=== PATIENT | male | born 1940 | race Caucasian/White ===

== ENCOUNTER 2017-11-22 07:41 | Outpatient (CLI) | payer BC ==
[2017-11-22 09:02] LABS: #Basophils 0.1 thou/uL (0.0-0.2); #Eosinphils 0.1 thou/uL (0.0-0.7); #Monocytes 0.5 thou/uL (0.11-0.59); #Neutrophils 3.7 thou/uL (1.40-6.50); %Basophils 0.9 % (0.0-1.0); %Eosinophils 1.1 % (0.0-10.0); %Lymphocytes 31.1 % (21.0-51.0); %Monocytes 8.6 % (0.0-10.0); %Neutrophils 58.3 % (42.0-75.0); Hemoglobin 14.5 g/dL (14.0-18.0); Mean Corpuscular HGB CONC 32.4 g/dL (32.0-36.0); Mean Corpuscular Hemoglobin 31.2 pg (27.0-31.0); Mean Platelet Volume 8.3 fL (7.4-10.4); Platelet Count 199 thou/uL (130-400); RBC Distribution Width 11.7 % (11.5-14.5); Red Blood Cell (RBC) Count 4.65 mill/uL (4.70-6.10); White Blood Cell (WBC) Count 6.3 thou/uL (4.8-10.8)
[2017-11-22 09:22] LABS: Anion Gap 10 mmol/L (10-20); BUN (Urea Nitrogen) 16 mg/dL (8.4-25.7); Calc. Creatinine Clearance 0 mL/min (70-130); Calcium 9.6 mg/dL (7.8-10.44); Carbon Dioxide 27 mmol/L (23-31); Chloride 108 mmol/L (98-107); Estimated GFR-MDRD 86; Glucose 104 mg/dL (83-110); Potassium 4.6 mmol/L (3.5-5.1); Sodium 140 mmol/L (136-145)
== END 2017-11-22 07:42 | disposition home or self-care (01) ==
LOC: LABBT 07:41
PROVIDERS: ATTEND Surgery
DX: Z01.818 Encounter for other preprocedural examination (principal); K40.90 Unilateral inguinal hernia, without obstruction or gangrene, not specified as recurrent
CPT/HCPCS: 80048; 85025; 93005; 93010

== ENCOUNTER 2017-11-26 05:55 | Day surgery (SDC) | payer BC ==
[2017-11-22 08:23] VITALS: BMI 23.7
[2017-11-26] MEDS ORDERED: CEFAZOLIN/Water 2 GM/20 ML SYRINGE ONE (06:12)
[2017-11-26] MEDS ORDERED: Bupivacaine/Epinephrine 0.25% 30 ML VIAL ONE (06:30)
[2017-11-26] MEDS ORDERED: Fentanyl 100 MCG/2 ML VIAL ONE ×3 (07:00→09:29)
--- NOTE | 2017-11-26 07:01 | HP ---
CHIEF COMPLAINT: Left inguinal hernia. HISTORY OF PRESENT ILLNESS: The patient is a 77-year-old male who reports a 20-year history of a lef t inguinal hernia, it is now causing pain, here for repair. PAST MEDICAL HISTORY: Seasonal allergies, bladder stones, bursitis, skin cancer, hyperlipidemia. PAST SURGICAL HISTORY: Tonsillectomy in 194. He has had anal fissure repaired in 1973. MEDICATIONS: Simvastatin, finasteride, lycopene, multivitamins, glucosamine. SOCIAL HISTORY: He is . No tobacco, no alcohol. FAMILY HISTORY: Both parents are . ALLERGIES: SULFA, LYRICA. PHYSICAL EXAMINATION: VITAL SIGNS: He is afebrile, pulse 61, blood pressure 129/61. He is 6 foot 1, 191 pounds, BMI of 25 .2. GENERAL: Well-developed, well-nourished male in no apparent distress. HEENT: Unremarkable. LUNGS: Clear. HEART: Regular rate and rhythm. ABDOMEN: Soft, nontender, good bowel sounds. EXTREMITIES: Good pulses. He has reducible left inguinal hernia. No right-sided hernia. ASSESSMENT: Left inguinal hernia. PLAN: Left inguinal hernia repair with mesh. CONSENT: I discussed the planned procedure as well as risk of bleeding, infection, injury to nerve, recurrence of hernia. He understands and gives informed consent.
[2017-11-26] MEDS ORDERED: Lidocaine 1% PF 5 ML VIAL ONE (09:55)
[2017-11-26] MEDS ORDERED: Glycopyrrolate 0.2 MG/ML 5 ML SYRINGE ONE (09:55)
[2017-11-26] MEDS ORDERED: Ondansetron HCl/PF 4 MG/2 ML Vial ONE (09:55)
[2017-11-26] MEDS ORDERED: PROPOFOL 200 MG/20 ML VIAL ONE (09:55)
--- NOTE | 2017-11-26 10:41 | OP ---
DATE OF PROCEDURE: 11/26/2017 PREOPERATIVE DIAGNOSIS: Left inguinal hernia. SURGEON: Alvarez Frazier M.D. PROCEDURE: Left inguinal hernia repair with mesh. INDICATIONS: A 77-year-old male with painful left inguinal hernia. FINDINGS: Left indirect inguinal hernia. PROCEDURE IN DETAIL: After informed consent was obtained, the patient was taken to the operating kt m and given general endotracheal anesthesia. He was placed in the supine position. Abdomen was prep ped and draped in usual fashion. Local anesthesia infiltrated subcutaneously and deep. A transverse left inguinal incision was performed. The subcu divided sharply. The fascia of the external obliqu e was incised in direction of its fibers through the external ring. Spermatic cord isolated with a P enrose drain. Cremasteric fibers and a hernia sac was found. This was dissected from surr ounding cord structures down to the internal ring and reduced. Reduction maintained with a PHS herni a system. The posterior layer was placed in the preperitoneal space. Anterior was laid out, sutured to the pubic tubercle medially, tucked under the external oblique fascia laterally. The external ob lique fascia closed with a running 3-0 Vicryl. Xiomy's closed with interrupted 3-0 Vicryl and the s kin closed with a running subcuticular 4-0 Rapide. Steri-Strips applied. Sterile bandage applied. The patient tolerated the procedure well and was transferred to recovery in good condition. Sponge a nd needle count verified correct x2.
[2017-11-26] MEDS ORDERED: HYDROcodone/Acetaminophen 5/325 mg Tablet ONE (10:50)
== END 2017-11-26 13:10 | disposition home or self-care (01) ==
LOC: SDC 05:55
PROVIDERS: ATTEND Surgery
PROC: 0YU60JZ Supplement Left Inguinal Region with Synthetic Substitute, Open Approach (ICD-10-PCS; principal; 2017-11-26)
DX: K40.90 Unilateral inguinal hernia, without obstruction or gangrene, not specified as recurrent (principal); E78.5 Hyperlipidemia, unspecified; Z79.899 Other long term (current) drug therapy; Z88.2 Allergy status to sulfonamides; Z88.8 Allergy status to other drugs, medicaments and biological substances
CPT/HCPCS: 96374; 96376; C1781; J2001; J2405; J2704; J3010

== ENCOUNTER 2021-01-20 14:15 | Outpatient (CLI) | payer MEDICARE, BC ==
[2021-01-20 15:32] LABS: #Basophils 0.1 10x3/uL (0.0-0.2); #Eosinphils 0.1 10x3/uL (0.0-0.5); #Monocytes 0.8 10x3/uL (0.0-1.1); #Neutrophils 6.2 10x3/uL (1.5-8.4); %Basophils 0.7 % (0.0-2.0); %Eosinophils 1.1 % (0.0-6.0); %Lymphocytes 21.9 % (18.0-47.0); %Monocytes 8.2 % (0.0-10.0); %Neutrophils 67.8 % (40.0-75.0); Mean Corpuscular HGB CONC 33.7 g/dL (32.0-36.0); Mean Corpuscular Hemoglobin 31.7 pg (27.0-33.0); Mean Corpuscular Volume 94.1 fl (81.2-95.1); Mean Platelet Volume 10.9 fl (7.4-10.4); Platelet Count 221 10x3/uL (150-450); RBC Distribution Width 12.4 % (11.5-14.5); Red Blood Cell (RBC) Count 4.42 10x6/uL (4.32-5.72); White Blood Cell (WBC) Count 9.2 10x3/uL (3.5-10.5)
[2021-01-20 15:58] LABS: ALT (SGPT) 23 U/L (8-55); AST (SGOT) 25 U/L (5-34); Albumin 4.2 g/dL (3.4-4.8); Alkaline Phosphatase 69 U/L (40-110); Anion Gap 11 mmol/L (10-20); BUN (Urea Nitrogen) 20 mg/dL (8.4-25.7); Calc. Creatinine Clearance 0 mL/min (70-130); Calcium 9.9 mg/dL (7.8-10.44); Carbon Dioxide 29 mmol/L (23-31); Chloride 109 mmol/L (98-107); Globulin 2.3 g/dL (2.4-3.5); Glucose 91 mg/dL (83-110); Potassium 5.4 mmol/L (3.5-5.1); Protein, Total 6.5 g/dL (5.8-8.1); Sodium 144 mmol/L (136-145)
[2021-01-21 09:09] LABS: SARS-CoV-2 PCR by NAA Not Detected (NotDetected)
== END 2021-01-20 14:16 | disposition home or self-care (01) ==
LOC: LABBT 14:15
PROVIDERS: ATTEND Surgery
DX: Z01.818 Encounter for other preprocedural examination (principal); K40.90 Unilateral inguinal hernia, without obstruction or gangrene, not specified as recurrent; Z20.822 Contact with and (suspected) exposure to COVID-19
CPT/HCPCS: 80053; 85025; U0003; U0005; 93005; 93010

== ENCOUNTER 2021-01-22 07:11 | Day surgery (SDC) | payer MEDICARE, BC ==
[2021-01-20 12:27] VITALS: BMI 23.7
[2021-01-22] MEDS ORDERED: Bupivacaine 0.25% HCL 30 ML VIAL ONE (09:54)
[2021-01-22] MEDS ORDERED: Lidocaine 1% w/Epinephrine 1:100K 20 ML VIAL ONE (09:54)
[2021-01-22] MEDS ORDERED: Famotidine/PF 20 mg/2ml Vial ONE (10:03)
[2021-01-22] MEDS ORDERED: Fentanyl 100 MCG/2 ML VIAL ONE (10:03)
[2021-01-22] MEDS ORDERED: Finasteride 5 MG TAB PO SCH (10:15)
[2021-01-22] MEDS ORDERED: Lidocaine 1% PF 5 ML VIAL ONE (10:45)
[2021-01-22] MEDS ORDERED: ePHEDrine 50 MG/ML VIAL ONE (10:45)
[2021-01-22] MEDS ORDERED: Ondansetron PF 4 MG/2 ML Vial ONE (10:45)
[2021-01-22] MEDS ORDERED: PROPOFOL 200 MG/20 ML VIAL ONE (10:45)
[2021-01-22] MEDS ORDERED: Glycopyrrolate 0.2 MG/ML 5 ML SYRINGE ONE (10:45)
[2021-01-22] MEDS ORDERED: Dexamethasone 20 MG/5 ML VIAL ONE (10:45)
== END 2021-01-22 14:05 | disposition home or self-care (01) ==
LOC: SDC 07:11
PROVIDERS: ATTEND Surgery
PROC: 0YU50JZ Supplement Right Inguinal Region with Synthetic Substitute, Open Approach (ICD-10-PCS; principal; 2021-01-22)
DX: K40.90 Unilateral inguinal hernia, without obstruction or gangrene, not specified as recurrent (principal); Z79.899 Other long term (current) drug therapy; Z88.2 Allergy status to sulfonamides; Z88.8 Allergy status to other drugs, medicaments and biological substances
CPT/HCPCS: C1781; J0690; J1100; J2405; J2704; J3010; J3490; S0020; S0028